=== PATIENT | male | born 1965 | race Caucasian/White ===

== ENCOUNTER 2020-03-22 14:17 | Inpatient (IN) | payer MEDICARE, MEDICAID ==
[~2020-03-22] VITALS: Ht 175.3 cm; Wt 75.8 kg
[2020-03-22] MEDS ORDERED: 0.9% SODIUM CHLORIDE 10 ML SYRINGE IVP PRN (15:45)
[2020-03-22] MEDS ORDERED: ACETAMINOPHEN 325 MG TABLET PO PRN ×2 (15:45→17:15)
[2020-03-22] MEDS ORDERED: ONDANSETRON HCL 4 MG/2 ML VIAL IVP PRN ×2 (15:45→17:15)
[2020-03-22] MEDS ORDERED: AMIODARONE HCL 150 MG in DEXTROSE 5%-WATER 97 ML IV ONE (15:50)
[2020-03-22] MEDS ORDERED: AMIODARONE HCL 360 MG in DEXTROSE 5%-WATER 242.8 ML IV ONE (16:00)
[2020-03-22] MEDS ORDERED: MAGNESIUM HYDROXIDE SUSPENSION 30 ML UDCUP PO PRN (17:15)
[2020-03-22] MEDS ORDERED: MORPHINE SULFATE 2 MG/ML SYRINGE IVP PRN (17:15)
[2020-03-22] MEDS ORDERED: BISACODYL 10 MG RECTAL RECTAL SUPPOSITORY PR PRN (17:15)
[2020-03-22] MEDS ORDERED: ZOLPIDEM TARTRATE 5 MG TABLET PO PRN (17:15)
[2020-03-22] MEDS ORDERED: HYDROCODONE/ACETAMINOPHEN 5-325 MG TABLET PO PRN (17:15)
[2020-03-22] MEDS: DOCUSATE SODIUM 100 MG CAPSULE PO SCH (20:48)
[2020-03-22 20:59] VITALS: BP 112/71
[2020-03-22] MEDS ORDERED: AMIODARONE HCL 540 MG in DEXTROSE 5%-WATER 239.2 ML IV ONE (22:00)
[2020-03-22] MEDS ORDERED: INFLUENZA VIRUS VACCINE QVS 2019-20 (3YR+)/PF 60 MCG/0.5 ML SYRINGE IM ONE (22:15)
[2020-03-23 04:47] VITALS: BP 108/74
[2020-03-23] MEDS: HEPARIN SODIUM,PORCINE 5,000 UNITS/ML VIAL SQ SCH ×3 (08:00→16:00)
[2020-03-23 08:10] VITALS: BP 112/78
[2020-03-23] MEDS ORDERED: PANTOPRAZOLE SODIUM 40 MG DR TABLET PO SCH (09:00)
[2020-03-23] MEDS: DOCUSATE SODIUM 100 MG CAPSULE PO SCH (10:16)
[2020-03-23] MEDS ORDERED: OLANZapine 5 MG TABLET PO SCH (11:30)
[2020-03-23 11:40] VITALS: BP 119/58
[2020-03-23] MEDS ORDERED: AMIODARONE HCL 750 MG in DEXTROSE 5%-WATER 485 ML IV SCH (15:45)
[2020-03-23 17:04] VITALS: BP 117/75
== END 2020-03-23 17:55 | DRG 310 ==
LOC: EMS 14:17 → 5S 18:37 → UNDOADMIN 18:37
PROVIDERS: ADMIT Internal Medicine; ATTEND Internal Medicine
DX: R00.0 Tachycardia, unspecified (principal); F25.1 Schizoaffective disorder, depressive type; Z95.0 Presence of cardiac pacemaker; Z88.8 Allergy status to other drugs, medicaments and biological substances; Z59.0 Homelessness
CPT/HCPCS: 93005; 93306; J0282; J1644; J7060

== ENCOUNTER 2020-03-23 18:00 | Inpatient (IN) | payer MEDICARE, MEDICAID ==
[~2020-03-23] VITALS: Ht 170.2 cm; Wt 77.3 kg
[2020-03-23 19:35] VITALS: BP 118/68
[2020-03-23] MEDS ORDERED: PNEUMOCOCCAL VACCINE POLYVALENT 0.5 ML VIAL [PPSV23] IM ONE (20:00)
[2020-03-23] MEDS ORDERED: ZOLPIDEM TARTRATE 10 MG TABLET PO PRN (20:00)
[2020-03-23] MEDS ORDERED: HALOPERIDOL 5 MG TABLET PO PRN (20:00)
[2020-03-23] MEDS ORDERED: LORazepam 2 MG TABLET PO PRN (20:00)
[2020-03-23 20:13] VITALS: BP 118/68
[2020-03-23] MEDS: OLANZapine 5 MG TABLET PO SCH (21:56)
[2020-03-24 06:54] LABS: BASOPHILS % (AUTO) 0.2 % (0.0-2.0); EOSINOPHILS % (AUTO) 3.8 % (1.0-6.0); HEMATOCRIT 37.4 % (41-53); HEMOGLOBIN 12.6 g/dL (13.5-17.5); LYMPHOCYTES # (AUTO) 1.7 K/uL (1.0-4.8); LYMPHOCYTES % (AUTO) 24.7 % (22.0-44.0); MEAN CORPUSCULAR HGB CONC 33.6 G/dL (31.0-37.0); MEAN CORPUSCULAR VOLUME 89 fL (80-100); MONOCYTES # (AUTO) 0.7 K/uL (0.1-1.0); MONOCYTES % (AUTO) 10.2 % (2.0-9.0); NEUTROPHILS # (AUTO) 4.3 K/uL (1.8-7.7); NEUTROPHILS % (AUTO) 61.1 % (40.0-70.0); PLATELET COUNT (AUTO) 168 K/uL (150-450); RED BLOOD CELL COUNT(AUTO) 4.18 MIL/uL (4.50-5.90); RED CELL DISTRIBUTION WIDTH 13.3 % (11.5-14.5)
[2020-03-24 07:18] LABS: ALANINE AMINOTRANSFERASE 33 U/L (12-78); ALBUMIN 3.1 g/dL (3.4-5.0); ALKALINE PHOSPHATASE 72 U/L (46-116); ANION GAP 6 mmol/L (8-16); ASPARTATE AMINOTRANSFERASE 34 U/L (15-37); BILIRUBIN,TOTAL 0.2 mg/dL (0.1-1.0); CALCIUM, TOTAL 8.2 mg/dL (8.8-10.5); CARBON DIOXIDE 28 mmol/L (22-29); CHLORIDE 108 mmol/L (98-107); CHOL/HDL RATIO 3.7 (4.2-7.3); CHOLESTEROL 158 mg/dL (131-200); CREATININE 0.76 mg/dL (0.60-1.30); GLOMERULAR FILTR. RATE CALC > 60 mL/min (>60); GLUCOSE,RANDOM 94 mg/dL (70-110); HDL CHOLESTEROL 43 mg/dL (40-60); LDL CHOL (CALC.) 96 mg/dL (0-130); POTASSIUM 4.1 mmol/L (3.5-5.1); SODIUM SERUM 142 mmol/L (136-145); THYROID STIMULATING HORMONE 1.53 uIU/mL (0.36-3.74); TOTAL PROTEIN, SERUM 6.7 g/dL (6.4-8.2); TRIGLYCERIDES 93 mg/dL (15-150); UREA NITROGEN, BLOOD 9 mg/dL (7-18)
[2020-03-24 08:47] VITALS: BP 109/75
[2020-03-24] MEDS: OLANZapine 5 MG TABLET PO SCH ×2 (09:20→20:48)
[2020-03-24 18:15] VITALS: BP 106/70
[2020-03-25] MEDS: OLANZapine 5 MG TABLET PO SCH ×2 (08:07→20:19)
[2020-03-25 09:04] VITALS: BP 114/74
[2020-03-25 17:23] VITALS: BP 106/71
[2020-03-26 08:30] VITALS: BP 108/72
[2020-03-26] MEDS: OLANZapine 5 MG TABLET PO SCH ×2 (08:37→20:26)
[2020-03-26 16:36] VITALS: BP 128/82
[2020-03-27 08:29] VITALS: BP 125/78
[2020-03-27] MEDS: OLANZapine 5 MG TABLET PO SCH ×2 (08:33→20:39)
[2020-03-27] MEDS ORDERED: DOCUSATE SODIUM 100 MG CAPSULE PO PRN (15:00)
[2020-03-27] MEDS ORDERED: PETROLATUM,WHITE 28 GM JELLY TP PRN (15:00)
[2020-03-27] MEDS ORDERED: LOPERAMIDE HCL 2 MG CAPSULE PO PRN (15:00)
[2020-03-27] MEDS ORDERED: MAG HYDROX/AL HYDROX/SIMETH ES 30 ML SUSPENSION UDCUP PO PRN (15:00)
[2020-03-27] MEDS ORDERED: ALBUTEROL SULFATE HFA 90 MCG/PUFF 8 GM INHALER IH PRN (15:00)
[2020-03-27] MEDS ORDERED: ONDANSETRON HCL 4 MG TABLET PO PRN (15:00)
[2020-03-27] MEDS ORDERED: CloNIDine HCL 0.1 MG TABLET PO PRN (15:00)
[2020-03-27] MEDS ORDERED: GuaiFENesin/D-METHORPHAN [SUGAR-FREE] 200-20MG/10 ML SYRUP UDCUP PO PRN (15:00)
[2020-03-27] MEDS ORDERED: ACETAMINOPHEN 325 MG TABLET PO PRN (15:00)
[2020-03-27] MEDS ORDERED: NICOTINE 14 MG/24 HOUR PATCH TD PRN (15:00)
[2020-03-27] MEDS ORDERED: MAGNESIUM HYDROXIDE SUSPENSION 30 ML UDCUP PO PRN (15:00)
[2020-03-27 16:56] VITALS: BP 116/75
[2020-03-28] MEDS: OLANZapine 5 MG TABLET PO SCH (08:25)
[2020-03-28 08:27] VITALS: BP 146/79
[2020-03-28] MEDS: IBUPROFEN 400 MG TABLET PO PRN (08:27)
[2020-03-28] MEDS: BACITRACIN 28.4 GM OINTMENT TP SCH ×2 (09:00→16:12)
[2020-03-28 09:33] VITALS: BP 146/79
[2020-03-28 16:40] VITALS: BP 105/77
[2020-03-28 16:54] VITALS: BP 105/77
[2020-03-28] MEDS: OLANZapine 7.5 MG TABLET PO SCH (20:40)
[2020-03-29 08:55] VITALS: BP 110/76
[2020-03-29 08:56] VITALS: BP 110/76
[2020-03-29] MEDS: IBUPROFEN 400 MG TABLET PO PRN ×2 (08:56→17:12)
[2020-03-29] MEDS: OLANZapine 7.5 MG TABLET PO SCH ×2 (08:56→20:42)
[2020-03-29] MEDS: BACITRACIN 28.4 GM OINTMENT TP SCH ×2 (08:57→16:13)
[2020-03-29 17:32] VITALS: BP 104/65
[2020-03-29 18:54] LABS: APPEARANCE,URINE CLEAR (CLEAR); BILIRUBIN,URINE NEGATIVE (NEGATIVE); GLUCOSE, URINE (UA) NEGATIVE (NEGATIVE); KETONES,URINE NEGATIVE (NEGATIVE); LEUKOCYTE ESTERASE ,URINE NEGATIVE (NEGATIVE); NITRATE,URINE NEGATIVE (NEGATIVE); OCCULT BLOOD,URINE NEGATIVE (NEGATIVE); PH,URINE 5.5 (5.0-8.0); PROTEIN,URINE NEGATIVE (NEGATIVE); UROBILINOGEN,URINE 0.2 mg/dL (<=1.0)
[2020-03-29 18:59] LABS: AMPHET/METH SCREEN,URINE NEGATIVE (NEGATIVE); BARBITURATE SCREEN, URINE NEGATIVE (NEGATIVE); BENZODIAZEPINES SCREEN,URINE NEGATIVE (NEGATIVE); CANNABINOID SCREEN,URINE NEGATIVE (NEGATIVE); COCAINE SCREEN,URINE NEGATIVE (NEGATIVE); METHADONE SCREEN, URINE NEGATIVE (NEGATIVE); OPIATE SCREEN,URINE NEGATIVE (NEGATIVE)
[2020-03-29 19:00] LABS: PHENCYCLIDINE SCREEN,URINE NEGATIVE (NEGATIVE)
[2020-03-30] MEDS: OLANZapine 7.5 MG TABLET PO SCH ×2 (08:10→20:03)
[2020-03-30] MEDS: BACITRACIN 28.4 GM OINTMENT TP SCH ×2 (08:16→18:38)
[2020-03-30 08:57] VITALS: BP 128/76
[2020-03-30 18:31] VITALS: BP 123/72
[2020-03-30 20:00] VITALS: BP 123/72
[2020-03-30] MEDS: IBUPROFEN 400 MG TABLET PO PRN (20:04)
[2020-03-31 08:00] VITALS: BP 108/72
[2020-03-31] MEDS: BACITRACIN 28.4 GM OINTMENT TP SCH ×3 (09:00→16:26)
[2020-03-31] MEDS: OLANZapine 7.5 MG TABLET PO SCH ×2 (09:09→20:50)
[2020-03-31 16:36] VITALS: BP 121/75
[2020-04-01] MEDS: BACITRACIN 28.4 GM OINTMENT TP SCH ×2 (09:00→16:47)
[2020-04-01 10:01] VITALS: BP 113/72
[2020-04-01] MEDS: OLANZapine 7.5 MG TABLET PO SCH ×2 (10:04→20:40)
[2020-04-01 16:30] VITALS: BP 106/65
[2020-04-02] MEDS: BACITRACIN 28.4 GM OINTMENT TP SCH ×2 (09:06→16:45)
[2020-04-02] MEDS: OLANZapine 7.5 MG TABLET PO SCH ×2 (09:06→20:49)
[2020-04-02 09:59] VITALS: BP 115/73
[2020-04-02 16:30] VITALS: BP 105/71
[2020-04-03] MEDS: OLANZapine 7.5 MG TABLET PO SCH ×2 (08:52→20:09)
[2020-04-03] MEDS: BACITRACIN 28.4 GM OINTMENT TP SCH ×2 (09:00→17:00)
[2020-04-03 09:30] VITALS: BP 102/62
[2020-04-03 16:22] VITALS: BP 116/76
[2020-04-04 08:20] VITALS: BP 119/68
[2020-04-04] MEDS: OLANZapine 7.5 MG TABLET PO SCH (08:21)
[2020-04-04] MEDS: IBUPROFEN 400 MG TABLET PO PRN (08:21)
[2020-04-04] MEDS: BACITRACIN 28.4 GM OINTMENT TP SCH ×2 (09:00→16:19)
== END 2020-04-04 16:11 | disposition short-term general hospital (02) | DRG 885 ==
LOC: 3EI 18:00
DX: F25.1 Schizoaffective disorder, depressive type (principal); E46 Unspecified protein-calorie malnutrition; R45.851 Suicidal ideations; D64.9 Anemia, unspecified; F10.10 Alcohol abuse, uncomplicated; Z95.0 Presence of cardiac pacemaker; Z68.26 Body mass index [BMI] 26.0-26.9, adult
CPT/HCPCS: 80307; 84436; 84439; 84443; 87081

== ENCOUNTER 2020-04-04 12:49 | Inpatient (IN) | payer MEDICARE, MEDICAID ==
[~2020-04-04] VITALS: Ht 170.2 cm; Wt 77.3 kg
[2020-04-04 17:00] VITALS: BP 112/66
[2020-04-04] MEDS ORDERED: ZOLPIDEM TARTRATE 10 MG TABLET PO PRN (18:30)
[2020-04-04] MEDS ORDERED: LORazepam 2 MG TABLET PO PRN (18:30)
[2020-04-04] MEDS ORDERED: HALOPERIDOL 5 MG TABLET PO PRN (18:30)
[2020-04-04] MEDS ORDERED: MAGNESIUM HYDROXIDE SUSPENSION 30 ML UDCUP PO PRN (19:30)
[2020-04-04] MEDS ORDERED: ALBUTEROL SULFATE HFA 90 MCG/PUFF 8 GM INHALER IH PRN (19:30)
[2020-04-04] MEDS ORDERED: MAG HYDROX/AL HYDROX/SIMETH ES 30 ML SUSPENSION UDCUP PO PRN (19:30)
[2020-04-04] MEDS ORDERED: GuaiFENesin/D-METHORPHAN [SUGAR-FREE] 200-20MG/10 ML SYRUP UDCUP PO PRN (19:30)
[2020-04-04] MEDS ORDERED: ONDANSETRON HCL 4 MG TABLET PO PRN (19:30)
[2020-04-04] MEDS ORDERED: IBUPROFEN 400 MG TABLET PO PRN (19:30)
[2020-04-04] MEDS ORDERED: ACETAMINOPHEN 325 MG TABLET PO PRN (19:30)
[2020-04-04] MEDS ORDERED: DOCUSATE SODIUM 100 MG CAPSULE PO PRN (19:30)
[2020-04-04] MEDS ORDERED: CloNIDine HCL 0.1 MG TABLET PO PRN (19:30)
[2020-04-04] MEDS ORDERED: LOPERAMIDE HCL 2 MG CAPSULE PO PRN (19:30)
[2020-04-04] MEDS ORDERED: NICOTINE 14 MG/24 HOUR PATCH TD PRN (19:30)
[2020-04-04] MEDS ORDERED: PETROLATUM,WHITE 28 GM JELLY TP PRN (19:30)
[2020-04-04] MEDS: OLANZapine 7.5 MG TABLET PO SCH (20:42)
[2020-04-05 07:37] LABS: BASOPHILS % (AUTO) 0.6 % (0.0-2.0); EOSINOPHILS % (AUTO) 2.4 % (1.0-6.0); HEMATOCRIT 40.5 % (41-53); HEMOGLOBIN 13.9 g/dL (13.5-17.5); LYMPHOCYTES % (AUTO) 28.3 % (22.0-44.0); MEAN CORPUSCULAR HGB CONC 34.3 G/dL (31.0-37.0); MEAN CORPUSCULAR VOLUME 87 fL (80-100); MONOCYTES # (AUTO) 0.5 K/uL (0.1-1.0); MONOCYTES % (AUTO) 7.1 % (2.0-9.0); NEUTROPHILS # (AUTO) 4.3 K/uL (1.8-7.7); NEUTROPHILS % (AUTO) 61.6 % (40.0-70.0); PLATELET COUNT (AUTO) 164 K/uL (150-450); RED BLOOD CELL COUNT(AUTO) 4.63 MIL/uL (4.50-5.90); RED CELL DISTRIBUTION WIDTH 12.9 % (11.5-14.5)
[2020-04-05 08:00] VITALS: BP 115/82
[2020-04-05 08:03] LABS: ALANINE AMINOTRANSFERASE 31 U/L (12-78); ALBUMIN 3.6 g/dL (3.4-5.0); ALKALINE PHOSPHATASE 89 U/L (46-116); ANION GAP 6 mmol/L (8-16); ASPARTATE AMINOTRANSFERASE 20 U/L (15-37); BILIRUBIN,TOTAL 0.3 mg/dL (0.1-1.0); CALCIUM, TOTAL 8.8 mg/dL (8.8-10.5); CARBON DIOXIDE 28 mmol/L (22-29); CHLORIDE 105 mmol/L (98-107); CHOLESTEROL 223 mg/dL (131-200); CREATININE 0.89 mg/dL (0.60-1.30); GLOMERULAR FILTR. RATE CALC > 60 mL/min (>60); GLUCOSE,RANDOM 85 mg/dL (70-110); HDL CHOLESTEROL 45 mg/dL (40-60); LDL CHOL (CALC.) 156 mg/dL (0-130); SODIUM SERUM 139 mmol/L (136-145); THYROID STIMULATING HORMONE 2.39 uIU/mL (0.36-3.74); TOTAL PROTEIN, SERUM 6.7 g/dL (6.4-8.2); TRIGLYCERIDES 112 mg/dL (15-150); UREA NITROGEN, BLOOD 19 mg/dL (7-18)
[2020-04-05] MEDS: OLANZapine 7.5 MG TABLET PO SCH ×2 (08:13→20:45)
[2020-04-05 08:19] LABS: HEMOGLOBIN A1C 5.1 % (3.8-5.6)
[2020-04-05 16:46] VITALS: BP 100/64
[2020-04-06 08:30] VITALS: BP 121/84
[2020-04-06] MEDS: OLANZapine 7.5 MG TABLET PO SCH ×2 (08:33→20:30)
[2020-04-07] MEDS: OLANZapine 7.5 MG TABLET PO SCH ×2 (08:01→20:22)
[2020-04-07 08:37] VITALS: BP 108/74
[2020-04-07] MEDS ORDERED: OLAN7.5T9 PO (10:59)
[2020-04-07 18:02] VITALS: BP 130/78
[2020-04-08 08:34] VITALS: BP 128/68
[2020-04-08] MEDS: OLANZapine 7.5 MG TABLET PO SCH (09:31)
== END 2020-04-08 10:26 | disposition home or self-care (01) | DRG 885 ==
LOC: 3EX 16:24
DX: F25.1 Schizoaffective disorder, depressive type (principal); E46 Unspecified protein-calorie malnutrition; Z68.26 Body mass index [BMI] 26.0-26.9, adult; Z91.19 Patient's noncompliance with other medical treatment and regimen; Z79.899 Other long term (current) drug therapy; F41.9 Anxiety disorder, unspecified; D64.9 Anemia, unspecified; F10.10 Alcohol abuse, uncomplicated; Y90.9 Presence of alcohol in blood, level not specified; Z95.0 Presence of cardiac pacemaker; Z88.8 Allergy status to other drugs, medicaments and biological substances
CPT/HCPCS: 83036; 84443; G0378